=== PATIENT | female | born 1995 | race American Indian/Alaskan Native ===

== ENCOUNTER 2019-11-01 11:17 | Emergency (ER) | payer SELFPAY ==
[2019-11-01 12:19] VITALS: BP 130/82
--- NOTE | 2019-11-01 12:19 | Event Note ---
ED Screening Note Date of service: 11/01/19 Time: 12:18 ED Screening Note: 24 y o female presents to Ed cc of vomitting with bright red blood started last night cc of 7/10 abd pain lower abd This initial assessment/diagnostic orders/clinical plan/treatment(s) is/are subject to change based on patients health status, clinical progression and re- assessment by fellow clinical providers in the ED. Further treatment and workup at subsequent clinical providers discretion. Patient/guardian urged not to elope from the ED as their condition may be serious if not clinically assessed and managed. Initial orders include: ua,upt, cbc,bmp
[2019-11-01 13:23] LABS: Bacteria,Urine 1+ /HPF (Negative); Bilirubin,Urine NEG (Negative); Blood,Urine NEG (Negative); Color,Urine Yellow (Yellow); Mucus,Urine 3+ /HPF
[2019-11-01 13:25] LABS: HCG Qualitative,Urine Negative (Negative)
[2019-11-01 13:39] LABS: Basophils % (Auto) 0.7 % (0.0-1.8); Hematocrit 40.5 % (30.3-42.9); Hemoglobin 13.9 gm/dl (10.1-14.3); Lymphocytes # (Auto) 1.7 K/mm3 (1.2-5.4); Lymphocytes % (Auto) 50.1 % (13.4-35.0); Mean Corpuscular HGB Conc 34 % (30-34); Mean Corpuscular Volume 93 fl (79-97); Monocytes # (Auto) 0.3 K/mm3 (0.0-0.8); Monocytes % (Auto) 7.7 % (0.0-7.3); Platelet Count 278 K/mm3 (140-440); Red Blood Count 4.37 M/mm3 (3.65-5.03); Red Cell Distribution Width 12.8 % (13.2-15.2)
[2019-11-01 13:56] LABS: BUN/Creatinine Ratio 16; Blood Urea Nitrogen 8 mg/dL (7-17); Calcium 9.3 mg/dL (8.4-10.2); Hemolysis Index 12
--- NOTE | 2019-11-01 18:55 | Emergency Department Report ---
ED Abdominal Pain HPI - General Chief Complaint: GI Bleed Stated Complaint: VOMITING BLOOD/ABD PAIN Time Seen by Provider: 11/01/19 18:09 Source: patient Mode of arrival: Ambulatory Limitations: No Limitations - History of Present Illness Initial Comments: 24-year-old -Al[place] female presents to the emergency room complaining of nausea and vomiting and left lower side abdominal pain since this morning. She reports she had one episode last night of vomiting bright red blood. Patient denies any dysuria vaginal bleeding or vaginal discharge. Patient does admit to diarrhea 4 days minus today. She is admitted to a decrease in appetite but able to drink. Patient does admit to drinking alcohol over the weekend. Patient last vomited 2 hours ago just had a streak of blood only mixed with mucus. Patient's last menstrual period was 10/29/2019. MD Complaint: abdominal pain Onset/Timin -: days(s) (diarrhea and left lower quadrant pain), This morning Location: LLQ Radiation: none Severity scale (0 -10): 7 Quality: aching Consistency: constant Improves With: nothing Worsens With: nothing Associated Symptoms: nausea, vomiting, diarrhea, hematemesis. denies: chills, constipation, dysuria - Related Data Allergies Allergy/AdvReac Type Severity Reaction Status Date / Time No Known Allergies Allergy Verified 11/01/19 12:19 ED Review of Systems ROS: Stated complaint: VOMITING BLOOD/ABD PAIN Other details as noted in HPI Comment: All other systems reviewed and negative ED Past Medical Hx - Past Medical History Previous Medical History?: Yes Hx Hypertension: Yes - Surgical History Past Surgical History?: No - Social History Smoking Status: Never Smoker Substance Use Type: Alcohol ED Physical Exam - General Limitations: No Limitations General appearance: alert, in no apparent distress - Head Head exam: Present: atraumatic, normocephalic - Eye Eye exam: Present: normal appearance - ENT ENT exam: Present: mucous membranes moist - Neck Neck exam: Present: normal inspection - Respiratory Respiratory exam: Present: normal lung sounds bilaterally. Absent: respiratory distress - GI/Abdominal GI/Abdominal exam: Present: soft, tenderness (left lower quadrant), normal bowel sounds. Absent: distended, guarding, rebound, rigid - Back Exam Back exam: Present: normal inspection - Neurological Exam Neurological exam: Present: alert, oriented X3, normal gait - Psychiatric Psychiatric exam: Present: normal affect, normal mood - Skin Skin exam: Present: warm, dry, intact, normal color. Absent: rash ED Course Vital Signs 11/01/19 12:17 Temperature 98.3 F Pulse Rate 79 Respiratory 18 Rate Blood Pressure 130/82 [Right] O2 Sat by Pulse 97 Oximetry ED Medical Decision Making - Lab Data Result diagrams: 11/01/19 13:28 11/01/19 13:28 - Medical Decision Making 24-year-old -Al[place] female presents to the emergency room complaining of nausea and vomiting and left lower side abdominal pain since this morning. She reports she had one episode last night of vomiting bright red blood. Patient denies any dysuria vaginal bleeding or vaginal discharge. Patient does admit to diarrhea 4 days minus today. She is admitted to a decrease in appetite but able to drink. Patient does admit to drinking alcohol over the weekend. Patient last vomited 2 hours ago just had a streak of blood only mixed with mucus. Patient's last menstrual period was 10/29/2019. Ordered IV with normal saline and CT with contrast. was able to get an IV but at the in patient refused to continue with having a CT as she reports her anxiety is too bad. Patient was offered antianxiety medication she declined and states that she'll come back later. This was witnessed by [facility] paramedics. Critical care attestation.: If time is entered above; I have spent that time in minutes in the direct care of this critically ill patient, excluding procedure time. ED Disposition Clinical Impression: Abdominal pain Disposition: DC-07 LEFT AGAINST MED ADVICE Is pt being admited?: No Does the pt Need Aspirin: No Condition: Undetermined Referrals: PRIMARY CARE, [Primary Care Provider] - 3-5 Days Forms: AMA Form
== END 2019-11-01 19:01 | disposition left against medical advice (07) ==
LOC: ED 11:17
DX: R10.32 Left lower quadrant pain (principal); R11.2 Nausea with vomiting, unspecified; R19.7 Diarrhea, unspecified; I10 Essential (primary) hypertension
CPT/HCPCS: 36415; 80048; 81001; 81025; 85025; 99283